=== PATIENT | female | born 1945 | race Caucasian/White ===

== ENCOUNTER 2020-02-04 12:12 | Inpatient (IN) | payer MEDICARE, OTHER ==
[~2020-02-04] VITALS: Ht 157.5 cm; Wt 65.8 kg
[2020-02-04] MEDS ORDERED: TEMAZEPAM 7.5 MG CAPSULE PO PRN (12:30)
[2020-02-04] MEDS ORDERED: MAGNESIUM HYDROXIDE 30 ML UDC PO PRN (12:30)
[2020-02-04] MEDS ORDERED: ACETAMINOPHEN 325 MG TABLET PO PRN (12:30)
[2020-02-04] MEDS ORDERED: MAG HYDROX/AL HYDROX/SIMETH 30 ML UDC PO PRN (12:30)
[2020-02-04] MEDS ORDERED: LEVO112T5 PO (13:02)
[2020-02-04] MEDS ORDERED: CICL6.1H IH (13:02)
[2020-02-04] MEDS ORDERED: ASPI-605 PO (13:02)
--- NOTE | 2020-02-04 14:24 | NUR ---
GPS/RN-NOTES ADMITTED 74 Y.O MALE PATIENT FROM [facility] ED [facility]. PATIENT BROUGHT IN BY AMBULANCE VIA GURNEY WITH TWO STAFF ASSIST. UPON FACE TO FACE INTERVIEW, PATIENT A/O X2 ,AMBULATORY STEADY GAIT.NOTED PATIENT DISHEVELLED ,FORGETFUL, ANGRY ,DEMANDING AND ARGUMENTATIVE. PATIENT WAS ON 72 HR HOLD FOR GD ADULT. ADVISEMENT WAS REVIEWED AND COPY WAS GIVEN TO THE PATIENT. PATIENT STATED" I WANTED TO GO TO A PLACE NEAR MY DAUGHTER ALINA, AND THEY BROUGHT ME HERE". PATIENT DENIES SI/HI AND AH AT THIS TIME. PATIENT WAS ORIENTED IN THE UNIT AND UNIT POLICIES. PATIENT'S RIGHT AND MEDICATION BOOKLET WAS GIVEN TO THE PATIENT. CONTRABAND AND FULL BODY ASSESSMENT DONE. DR. YEAGER AND CAR BODY DESIGNER FRANCISCO MADE AWARE OF THE ADMISSION. DAUGHTER ALINA [phone] MADE AWARE OF THE ADMISSION. Addendum: 02/04/20 at 1529 by SUSHILA WHITTEN RN CORRECTIONS ON MY PATIENT GENDER ITS FEMALE PATIENT.
--- NOTE | 2020-02-04 15:30 | NUR ---
RN-CO: NOTIFIED FRANCISCO LAPPER TO RECONCILE HOME MEDICATIONS.
[2020-02-04 16:00] VITALS: BP 117/69
[2020-02-04] MEDS ORDERED: BLOOD SUGAR DIAGNOSTIC 1 EACH STRIP IN ONE (16:30)
--- NOTE | 2020-02-04 16:40 | NUR ---
GPS/RN-NOTES PATIENT REFUSED ACCU CHECK DESPITE EXPLANATIONS RISK AND BENEFITS.PATIENT GETS ANGRY. STATED " DON'T WANT TO STAY HERE ,I WANT TO GO AND STAY NEAR MY DAUGHTER PLACE". OFFERED X3 STILL REFUSED.
[2020-02-04 20:24] VITALS: BP 139/78
--- NOTE | 2020-02-04 21:20 | NUR ---
GPS RN NOTE, PATIENT HAS A COMPLAINT THAT SHE TAKES ALVESCO 80 MCG IH BID AND WOULD LIKE TO BE ABLE TO USE THIS MEDICATION. CALLED PHARMACY BUT PHARMACY IS UNABLE TO PROVIDE THIS MEDICATION. PATIENT CALLED DAUGHTER ALINA HARO . ALINA HARO STATED THAT SHE WOULD BRING IN ALVESCO IH ON 02/05/20. PATIENT LUNG SOUNDS ARE CLEAR TO AUSCULTATION THOUGH OUT WITH A SPO2 OF 99% ON ROOM AIR. [facility] ORDER TO GIVE ALBUTEROL FS 2.5ML / 3 ML UD VIA NEB Q6 PRN FOR WHEEZING. ALL ORDERS NOTED AND CARRIED OUT. WILL CONTINUE TO MONITOR THIS PATIENT WITH THE HELP OF STAFF.
[2020-02-04] MEDS ORDERED: ALBUTEROL FS 2.5 MG/3 ML VIAL.NEB NEB PRN (21:30)
--- NOTE | 2020-02-04 23:00 | NUR ---
GPS RN NOTES: PATIENT APPROACH THE NURSE IN THE STATION ASKING FOR HER ALVESCO INHALER AND ALBUTEROL INHALER. PATIENT INSISTED THAT SHE WILL HAVE THE POSSESSION OF ALBUTEROL MEDICATION. NURSE EXPLAINED THAT SHE HAS ALBUTEROL BREATHING TREATMENT ORDERED. PATIENT IS UPSET SINCE SHE WANTS ONLY THE ALBUTEROL INHALER AT HER BEDSIDE.
[2020-02-05 07:29] LABS: ALBUMIN 3.2 g/dL (3.4-5.0); BILIRUBIN,TOTAL 0.5 mg/dL (0.2-1.0); POTASSIUM 4.2 mmol/L (3.5-5.1); TOTAL PROTEIN, SERUM 6.5 g/dL (6.4-8.2)
[2020-02-05] MEDS: LEVOTHYROXINE SODIUM 112 MCG TABLET PO SCH (07:45)
[2020-02-05 07:47] LABS: CHOLESTEROL 265 mg/dL (<200); HDL CHOLESTEROL 58 mg/dL (40-60); LDL 194 mg/dL (0-99); TRIGLYCERIDES 98 mg/dL (30-150)
[2020-02-05 08:00] VITALS: BP 129/62
[2020-02-05] MEDS: ASPIRIN EC 81 MG TABLET.DR PO SCH (08:05)
--- NOTE | 2020-02-05 12:40 | NUR ---
Initial Discharge Note: Patient was residing with her daughter, Angel at [address] [place] [address]. Patient's daughter, Brenda Cohen ([phone]) states that the patient will likely be moving in with her upon discharge. Brenda stated that they will discuss within the family where the patient will be discharged to and speak with the social director in a timely manner. SW will continue to work with patient, family, and MD to ensure a safe and proper discharge plan.
--- NOTE | 2020-02-05 12:41 | NUR ---
Family Contact: Spoke with Patient's daughter, Brenda Cohen ([phone]) and discussed treatment and discharge planning. Brenda stated that although patient was living at [address] [place] [address] with her other daughter Angel, they were in the process of the patient moving in with [facility] in [place], [place] (address to be received). [facility] provided this check writer salesperson with the patient's son's information, Patrice ([phone]) to be able to discuss treatment and discharge plan with as well. Patient sister, Wendy ([phone]) lives in [place] who would also like to be involved. SW called however has been unable to reach at this time.
[2020-02-05] MEDS ORDERED: ALBU18HF2 INH (13:26)
--- NOTE | 2020-02-05 15:12 | NUR ---
GROUP NOTE: Topic: Learning coping skills. Patient presents with disorganized thought process and withdrawn mood. Patient is unable to engage in a meaningful conversation due to being fixated on her "move to [place]". crop farm workers provided positive reality orientation and encouragement to step out of her room and join group activities.
[2020-02-05 16:00] VITALS: BP 126/79
[2020-02-05] MEDS ORDERED: ALBUTEROL SULFATE INH 18 GM HFA.AER.AD IH PRN (18:30)
--- NOTE | 2020-02-05 20:21 | NUR ---
GPS RN NOTE PATIENT STATED," IF MY DAUGHTERS LUZ & ALINA CALIXTO, DO NOT LET THEM KNOW THAT I AM HERE, LUZ STOLE MY MONEY, ALINA DID NOT STEAL MY MONEY BUT I DO NOT WANT HER TO KNOW WHERE I AM WELL." ENDORSED TO PRIMARY RN MAKI BOATENG ABOUT PATIENT'S CONCERN.
[2020-02-05 21:15] VITALS: BP 138/71
[2020-02-05] MEDS: ARIPIPRAZOLE 5 MG TABLET PO SCH (21:34)
--- NOTE | 2020-02-05 21:34 | NUR ---
GPS RN NOTE: MEDICATION REFUSAL PT. REFUSED SCHEDULED 2200 ABILIFY 5MG PO. STATES "MEDICATION HAS TO MANY SIDE EFFECTS." EXPLAINED RISKS AND BENEFITS. OFFERED 3 TIMES AND STILL REFUSED. WILL CONTINUE TO MONITOR FOR SAFETY AND BEHAVIOR
[2020-02-05] MEDS: LORAZEPAM 0.5 MG TABLET PO PRN (22:39)
--- NOTE | 2020-02-05 22:39 | NUR ---
GPS RN NOTE: ANXIETY PT. C/O OF BEING ANXIOUS. ADMINISTERED ATIVAN 0.5 MG PO PRN ORDERED. WILL CONTINUE TO MONITOR FOR SAFETY AND BEHAVIOR
[2020-02-06] MEDS: LEVOTHYROXINE SODIUM 112 MCG TABLET PO SCH (07:55)
[2020-02-06] MEDS: ASPIRIN EC 81 MG TABLET.DR PO SCH (07:55)
[2020-02-06 08:00] VITALS: BP 131/69
[2020-02-06] MEDS: SERTRALINE HCL 50 MG TABLET PO SCH (08:05)
[2020-02-06] MEDS: CICLESONIDE PO SCH (14:05)
[2020-02-06 16:00] VITALS: BP 135/77
[2020-02-06 16:50] LABS: THYROID STIMULATING HORMONE 4.974 uIU/mL (0.358-3.74)
[2020-02-06 21:04] VITALS: BP 129/71
[2020-02-06] MEDS: ARIPIPRAZOLE 5 MG TABLET PO SCH (21:30)
--- NOTE | 2020-02-06 21:30 | NUR ---
GPS RN NOTE: MEDICATION REFUSAL PT. REFUSED SCHEDULED 2200 ABILIFY 5MG PO. STATES "MY MOOD IS FINE. I DON'T NEED ANYTHING FOR MY MOOD." EXPLAINED RISKS AND BENEFITS. OFFERED 3 TIMES AND STILL REFUSED. WILL CONTINUE TO MONITOR FOR SAFETY AND BEHAVIOR
[2020-02-07] MEDS: LEVOTHYROXINE SODIUM 112 MCG TABLET PO SCH (07:29)
[2020-02-07] MEDS: SERTRALINE HCL 50 MG TABLET PO SCH (07:29)
[2020-02-07] MEDS: ASPIRIN EC 81 MG TABLET.DR PO SCH (07:29)
[2020-02-07 08:00] VITALS: BP 146/80
[2020-02-07] MEDS: CICLESONIDE PO SCH (08:04)
[2020-02-07 15:55] VITALS: BP 139/76
[2020-02-07] MEDS: ARIPIPRAZOLE 5 MG TABLET PO SCH ×2 (16:00→17:31)
[2020-02-07 20:01] VITALS: BP 132/62
--- NOTE | 2020-02-08 06:53 | NUR ---
GPS RN NOTES: PATIENT IN THE ROOM, AWAKE, APPROACHED BY THE NURSE FOR THE WEEKLY PICUTRES. PATIENT REFUSED TO HAVE THE WEEKLY PHOTOS TAKEN.
[2020-02-08 08:00] VITALS: BP 145/70
[2020-02-08] MEDS: CICLESONIDE PO SCH (08:19)
[2020-02-08] MEDS: SERTRALINE HCL 50 MG TABLET PO SCH (08:20)
[2020-02-08] MEDS: LEVOTHYROXINE SODIUM 112 MCG TABLET PO SCH (08:20)
[2020-02-08] MEDS: ASPIRIN EC 81 MG TABLET.DR PO SCH (08:20)
--- NOTE | 2020-02-08 11:09 | NUR ---
SW Coordination of Care: Received a call from Ellie RN Lead Cargoman from [address] [address] ([phone]) who stated that the patient's primary care physician is Dr. Day and they will have the patient follow up with psychiatrist Dr. Deng post discharge. Ellie stated to make aftercare appointment to contact either herself, Trina, or Sudhir at ([phone]).
--- NOTE | 2020-02-08 15:36 | NUR ---
Group Note: SW invited patient to participate in group therapy to discuss the topic of Problem Solving. Patient presents with appropriate mood and congruent affect. patient remains fixated on her discharge plan. Patient is unable to engage in a topic other than discharge plan. SW provided redirection, active listening, and acknowledged patient's feelings and concerns.
[2020-02-08 16:00] VITALS: BP 128/70
[2020-02-08] MEDS: ARIPIPRAZOLE 5 MG TABLET PO SCH (16:45)
[2020-02-08 20:01] VITALS: BP 147/69
--- NOTE | 2020-02-09 06:00 | NUR ---
PACO-CARMEN NOTE: ADMINISTERED ALVESCO 200MCG/DOSE INHALE 1 PUFF ORALLY AT 0600. PATIENT TOLERATED WELL. Addendum: 02/09/20 at 0643 by SONIA LEDBETTER RN GIVEN AT 0641 ORDERED
[2020-02-09] MEDS: LORAZEPAM 0.5 MG TABLET PO PRN (06:26)
--- NOTE | 2020-02-09 06:28 | NUR ---
GPS-RN NOTE: ANXIETY PATIENT C/O FEELING ANXIOUS. ADMINISTERED ATIVAN 0.5MG PO ORDERED. WILL CONTINUE TO MONITOR.
[2020-02-09] MEDS: HOME MED MISCELLANEOUS PO SCH ×2 (06:30→06:32)
--- NOTE | 2020-02-09 06:42 | NUR ---
GIVEN AT 0641 ORDERED Addendum: 02/09/20 at 0643 by SONIA LEDBETTER RN DISREGARD THIS NOTE.
[2020-02-09 08:00] VITALS: BP 157/88
[2020-02-09] MEDS: ASPIRIN EC 81 MG TABLET.DR PO SCH (08:22)
[2020-02-09] MEDS: LEVOTHYROXINE SODIUM 112 MCG TABLET PO SCH (08:22)
[2020-02-09] MEDS: SERTRALINE HCL 50 MG TABLET PO SCH (08:22)
--- NOTE | 2020-02-09 13:01 | NUR ---
Coordination of Care: SW faxed patient's referral packet to [facility] [address] [place] [address] (ph: [phone] fax: [phone]) attention to Molina in service coordinator for review and possible placement.
--- NOTE | 2020-02-09 13:04 | NUR ---
Family Contact: SW called and left a voicemail for patient's daughter, Brenda Cohen ([phone]) to discuss discharge planning.
--- NOTE | 2020-02-09 13:34 | NUR ---
Family Contact: Spoke with Patient's son Patrice ([phone]) regarding discharge planning. Patrice stated that they are trying to find an Assisted Living Facility. Patrice stated that they do not want to resort to having the patient return home with them as it has not been a safe environment/adjustment for the patient. Patrice stated that should they be unable to find an assisted living facility near [place], [place] they will be in agreement with the [place] until more permanent arrangement are made. TOBY also received a call back from pt's daughter, Brenda ([phone]) and discussed the above information with her. Brenda is agreement with the patient going to a Shelter Facility upon discharge from the hospital. Brenda stated that she will speak to her siblings and they will discuss what they believe is the best plan for their mother, and inform this insurance writer. This insurance writer also offered SNF placement in the [facility] area which Brenda was fine with. TOBY waiting to hear back to continue with discharge planning.
--- NOTE | 2020-02-09 15:52 | NUR ---
Group Note: SW encouraged pt to attend group therapy on 02/09/20 on the topic of discharge planning. Pt refused as she was asleep.
[2020-02-09 16:00] VITALS: BP 149/70
[2020-02-09] MEDS: ARIPIPRAZOLE 5 MG TABLET PO SCH (16:39)
[2020-02-09 20:12] VITALS: BP 123/71
[2020-02-10] MEDS: HOME MED MISCELLANEOUS PO SCH (06:00)
[2020-02-10 08:00] VITALS: BP 130/69
[2020-02-10] MEDS: LEVOTHYROXINE SODIUM 112 MCG TABLET PO SCH (08:26)
[2020-02-10] MEDS: ASPIRIN EC 81 MG TABLET.DR PO SCH (08:26)
[2020-02-10] MEDS: SERTRALINE HCL 50 MG TABLET PO SCH (08:26)
--- NOTE | 2020-02-10 11:30 | NUR ---
Group Note: SW encouraged pt to participate in group on the topic of dealing with anxiety. Patient presented with more calm and appropriate mood. Patient shared that she is feeling some anxiety about not knowing what will happen to her after the hospital. This jingle writer provided patient with a discharge plan and patient appeared to have a sense of relief.
[2020-02-10 16:00] VITALS: BP_SYST 128; BP_SYST 144; BP_DIAS 73; BP_DIAS 79
[2020-02-10] MEDS: ARIPIPRAZOLE 5 MG TABLET PO SCH (16:48)
[2020-02-10 19:34] VITALS: BP 148/76
[2020-02-11] MEDS: HOME MED MISCELLANEOUS PO SCH (06:00)
--- NOTE | 2020-02-11 06:12 | NUR ---
GPS RN NOTE: PT ASLEEP WOKE UP PT TO TAKE ALVESCO MEDICATION INHALER DUE AT 0600. PT ASLEEP. ATTEMPTED TO WAKE UP PT. PT CONTINUE TO GO BACK TO SLEEP. PT INCREASED AGITATION WHEN WOKEN UP. CONTINUE TO MONITOR.
[2020-02-11 08:00] VITALS: BP 148/76
[2020-02-11] MEDS: ASPIRIN EC 81 MG TABLET.DR PO SCH (08:19)
[2020-02-11] MEDS: LEVOTHYROXINE SODIUM 112 MCG TABLET PO SCH (08:20)
[2020-02-11] MEDS: SERTRALINE HCL 50 MG TABLET PO SCH (08:20)
--- NOTE | 2020-02-11 09:20 | NUR ---
SNF REFERRAL: TOBY faxed SNF referral [facility] [address] [facility] [place] [address] for review.
--- NOTE | 2020-02-11 11:05 | NUR ---
FAMILY CONTACT: SW received a call from pts daughter, Brenda Cohen ([phone]) requested updated information. SW informed her pt will be discharged on Saturday02/15/20 and that referrals have been faxed to a SNF. SW stated she will inform her of placement once pt has been accepted.
[2020-02-11] MEDS: LORAZEPAM 0.5 MG TABLET PO PRN (12:14)
--- NOTE | 2020-02-11 12:19 | NUR ---
GPS/RN-NOTES NOTED PATIENT VERY ANXIOUS AND ANGRY STATED" YOU PEOPLE DID NOT GIVE MY INHALER MEDICATIONS" .SUPERVISOR VAT HOUSE EXPLAINED THAT IT WAS ALREADY ADMINISTERED EARLIER IN THE MORNING AND THAT IT WAS ONCE DAILY. OFFERED ATIVAN 0.5MG P.O PRN ORDER. AND AGREED.WILL CONT. MONITORING FOR SAFETY AND BEHAVIOR.
--- NOTE | 2020-02-11 12:48 | NUR ---
RN-CO: Paged Dr Martinez, daughter Brenda([phone]) stated via phone call that her Mom doesn't like Ativan or any anxiety. Verified it with the patient and she said " yes it makes her dizzy.Awaiting for to call back.
--- NOTE | 2020-02-11 13:20 | NUR ---
GPS/RN-NOTES PATIENT IN THE DAY ROOM PARTICIPATING WITH THE GROUP,CALM,NO ACUTE DISTRESS NOTED.
--- NOTE | 2020-02-11 13:32 | NUR ---
SNF CONTACT: SW received a call from evens Chowdhury at [facility] Address: [address] [place] [address] stating pt has been accepted to the facility.
[2020-02-11 16:00] VITALS: BP 147/77
[2020-02-11] MEDS: ARIPIPRAZOLE 5 MG TABLET PO SCH (16:21)
[2020-02-11 20:15] VITALS: BP 177/85
[2020-02-11 21:28] VITALS: BP 150/71
[2020-02-12] MEDS: HOME MED MISCELLANEOUS PO SCH (05:59)
[2020-02-12 08:30] VITALS: BP 124/64
[2020-02-12] MEDS: SERTRALINE HCL 50 MG TABLET PO SCH (08:35)
[2020-02-12] MEDS: LEVOTHYROXINE SODIUM 112 MCG TABLET PO SCH (08:35)
[2020-02-12] MEDS: ASPIRIN EC 81 MG TABLET.DR PO SCH (08:35)
--- NOTE | 2020-02-12 11:15 | NUR ---
FAMILY CONTACT: SW contacted pts daughter, Brenda Cohen ([phone]) and left a voicemail informing her pt will be discharged on Saturday02/15/20 to [facility] Address: [address] [place] [id number] .
--- NOTE | 2020-02-12 14:51 | NUR ---
FAMILY CONTACT: SW received a call from pts daughter, Brenda Cohen ([phone]) confirming pts discharge plan. Daughter agrees with discharge plan.
[2020-02-12 16:00] VITALS: BP 143/82
[2020-02-12] MEDS: ARIPIPRAZOLE 5 MG TABLET PO SCH (16:34)
[2020-02-12 19:47] VITALS: BP 142/69
[2020-02-13] MEDS: HOME MED MISCELLANEOUS PO SCH (06:18)
--- NOTE | 2020-02-13 07:00 | NUR ---
GPS RN CLOSING NOTE PATIENT SLEPT WELL AT NIGHT. NO CHANGE OF CONDITION NOTED. NO ACUTE DISTRESS NOTED. WILL ENDORSE TO AM RN FOR CONTINUITY OF CARE.
[2020-02-13] MEDS: LEVOTHYROXINE SODIUM 112 MCG TABLET PO SCH (07:51)
[2020-02-13 08:00] VITALS: BP 145/74
[2020-02-13] MEDS: SERTRALINE HCL 50 MG TABLET PO SCH (08:32)
[2020-02-13] MEDS: ASPIRIN EC 81 MG TABLET.DR PO SCH (08:32)
[2020-02-13 12:36] LABS: BASOPHILS % (AUTO) 0.9 % (0.0-2.0); EOSINOPHILS % (AUTO) 1.7 % (0.0-6.0); HEMATOCRIT 39 % (33-45); HEMOGLOBIN 12.7 g/dL (11.5-14.8); LYMPHOCYTES # (AUTO) 1.1 /CMM (0.8-4.8); LYMPHOCYTES % (AUTO) 25.2 % (20.0-44.0); MEAN CORPUSCULAR HGB CONC 33 g/dl (31.0-36.0); MEAN CORPUSCULAR VOLUME 89 fL (82-100); MONOCYTES # (AUTO) 0.2 /CMM (0.1-1.30); MONOCYTES % (AUTO) 5.7 % (2.0-12.0); NEUTROPHILS # (AUTO) 2.9 /CMM (1.8-8.9); NEUTROPHILS % (AUTO) 66.5 % (43.0-81.0); PLATELET COUNT (AUTO) 194 /CMM (150-450); RED BLOOD CELL COUNT(AUTO) 4.38 MIL/uL (4.0-5.2); WHITE BLOOD COUNT (AUTO) 4.3 K/uL (4.3-11.0)
[2020-02-13 12:50] LABS: ALBUMIN 3.6 g/dL (3.4-5.0); BILIRUBIN,TOTAL 0.5 mg/dL (0.2-1.0); CALCIUM, SERUM 8.6 mg/dL (8.5-10.1); CREATININE 0.9 mg/dL (0.6-1.3); MAGNESIUM 2.2 mg/dL (1.8-2.4); TOTAL PROTEIN, SERUM 7.1 g/dL (6.4-8.2)
[2020-02-13 16:00] VITALS: BP 166/79
[2020-02-13 18:44] LABS: APPEARANCE,URINE CLOUDY (CLEAR); BILIRUBIN,URINE NEGATIVE (NEGATIVE); BLOOD, URINE NEGATIVE Ery/uL (NEGATIVE); COLOR,URINE YELLOW (YELLOW); KETONES,URINE NEGATIVE (NEGATIVE); LEUKOCYTE ESTERASE ,URINE SMALL (NEGATIVE); NITRITE, URINE NEGATIVE (NEGATIVE); PH,URINE 5.5 (5.0-8.0); PROTEIN,URINE NEGATIVE (NEGATIVE); UGLUCOSE NEGATIVE (NEGATIVE); UROBILINOGEN,URINE 0.2 EU/dL (0.2)
[2020-02-13 18:52] LABS: BACTERIA,URINE Rare /HPF (None Seen); RBC,URINE 0-2 /HPF (0-2)
[2020-02-13 18:53] LABS: SQUAMOUS EPITHELIAL CELL,UR 0-2 /HPF (None Seen); URINE AMORPHOUS URATE Moderate /HPF (None Seen)
[2020-02-13 20:00] VITALS: BP 155/81
[2020-02-13] MEDS: ARIPIPRAZOLE 5 MG TABLET PO SCH (20:18)
[2020-02-13 20:32] VITALS: BP 155/81
--- NOTE | 2020-02-13 21:30 | NUR ---
GPS RN NOTES PATIENT'S UA RESULT RELAYED TO TINY GOLDSTEIN & TINY SUGGESTED TO WAIT FOR URINE CULTURE RESULTS TO RULE OUT DIAGNOSIS. NO S/S OF INFECTION NOTED OR VERBALIZED BY THE PATIENT AT THIS TIME. WILL CONTINUE TO MONITOR.
[2020-02-14] MEDS: HOME MED MISCELLANEOUS PO SCH (06:06)
[2020-02-14] MEDS: LEVOTHYROXINE SODIUM 112 MCG TABLET PO SCH (07:22)
[2020-02-14 08:00] VITALS: BP 149/78
[2020-02-14] MEDS: ASPIRIN EC 81 MG TABLET.DR PO SCH (08:27)
[2020-02-14] MEDS: SERTRALINE HCL 50 MG TABLET PO SCH (08:27)
[2020-02-14 15:55] VITALS: BP 155/84
[2020-02-14 20:00] VITALS: BP 146/60
[2020-02-14] MEDS: ARIPIPRAZOLE 5 MG TABLET PO SCH (20:18)
--- NOTE | 2020-02-14 22:44 | NUR ---
GPS RN NOTE: INSOMNIA PATIENT STATED SHE IS UNABLE TO SLEEP & REQUESTED TO GET SLEEPING MEDICINE. PRN RESTORIL 7.5 MG 1 CAP PO GIVEN ORDERED. WILL CONTINUE TO MONITOR FOR EFFECTIVENESS.
--- NOTE | 2020-02-15 03:24 | NUR ---
GPS RN NOTE PATIENT IS SLEEPING COMFORTABLY AT THIS TIME. NO CHANGES NOTED.
[2020-02-15] MEDS: HOME MED MISCELLANEOUS PO SCH (06:29)
[2020-02-15] MEDS: LEVOTHYROXINE SODIUM 112 MCG TABLET PO SCH (07:24)
[2020-02-15 08:00] VITALS: BP 125/60
[2020-02-15] MEDS: SERTRALINE HCL 50 MG TABLET PO SCH (08:32)
[2020-02-15] MEDS: ASPIRIN EC 81 MG TABLET.DR PO SCH (08:32)
--- NOTE | 2020-02-15 09:34 | NUR ---
TOBY COORDINATION OF CARE: TOBY faxed clinicals to Trina, nurse manager long term care at [facility] Address: [facility] [address], [place] [address] for coordination of care.
--- NOTE | 2020-02-15 09:35 | NUR ---
DISCHARGE NOTE: Pt will be discharged at 1:00pm via [facility] to [facility] Address: [address] [place] [address] . Pts Daughter Brenda [phone] has been notified and agrees with discharge plan. Pts mood is euthymic with congruent affect. Pt denied visual/auditory hallucinations and denied suicidal/homicidal ideation. Pt will be under the care of Psychiatrist: Dr. Martinez Address: [address] [place] [address] and Regional Psychiatric Director: Dr. Franko Fernández [address] [address] . The multidisciplinary exit care form was done, printed, signed, and given to the patient.
--- NOTE | 2020-02-15 13:36 | NUR ---
CARMEN NOTE: REPORT CALLED TO TANESHA MAYEN
--- NOTE | 2020-02-15 14:10 | NUR ---
STRAIGHT LINE EDGER NOTE: 74 YEAR OLD FEMALE DISCHARGED TO [facility] IN STABLE CONDITION. COMPLIANT WITH MEDICATIONS, COOPERATIVE WITH TREATMENT PLANS. PATIENT DENIES SI/HI AND INSTRUCTED TO GO TO THE CLOSEST ER IF DEVELOPING SI/HI. BEHAVIOR IMPROVED, PSYCHIATRIC TREATMENT PLANS MED, MEDICAL TREATMENT PLANS DEFERRED FOR CONTINUAL MONITORING. EDUCATED PT ABOUT THE AFTER CARE PLAN AND COPY PROVIDED. PERSONAL BELONGINGS RETURNED TO P T. MEDICATIONS RECONCILED WITH DR MURRY AND KASHIF DIRECT SUPPORT SPECIALIST. REPORT GIVEN TO TANESHA EGAN AT [facility] NURSING FOR CONTINUITY OF CARE. PT SIGNED DISCHARGE PAPERWORK. WOUND PICTURES DONE ON PRODUCT DESIGN ENGINEER. PATIENT LEFT THE UNIT VIA GURNEY WITH EMS AT 1410.
== END 2020-02-15 14:05 | DRG 885 ==
LOC: GPS 12:12
PROVIDERS: ADMIT Psychiatry & Neurology Psychiatry; ATTEND Nurse Practitioner Acute Care
DX: F25.0 Schizoaffective disorder, bipolar type (principal); F29 Unspecified psychosis not due to a substance or known physiological condition; E03.9 Hypothyroidism, unspecified; E78.5 Hyperlipidemia, unspecified; F03.90 Unspecified dementia, unspecified severity, without behavioral disturbance, psychotic disturbance, mood disturbance, and anxiety; J45.909 Unspecified asthma, uncomplicated; Z73.6 Limitation of activities due to disability
CPT/HCPCS: 36415; 80053-TC; 80061-TC; 81000-TC; 83735-TC; 84439-TC; 84443-TC; 85025-TC; 87081-TC; 87086-TC; 94799-TC